=== PATIENT | male | born 1950 | race Caucasian/White ===

== ENCOUNTER 2017-05-13 07:17 | Inpatient (IN) | payer MEDICARE, OTHER ==
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
--- NOTE | ~2017-05-13 | CT2 ---
[facility] RADIOLOGY TEXT RESULTS PATIENT: BYRON VELASQUEZ LOCATION: [facility] 572-01 : [birth year] UNIT #: [id number] AGE: [address]: Ash Gee MD SEX: M ORDER DR: [id number] [facility] [address] [facility]. [place], [place] [address] [id number] I MR#: [id number] Acc #: [id number] NAME: BYRON VELASQUEZ : 1950 SEX: M STUDY DATE/TIME: 05/15/2017 20:52 UNIT: [facility] ROOM: [facility] STUDY DESCRIPTION: CT Abd and Pelv W Cont Attending Physician: Ash Gee M.D. Ordering Physician: Hunter Rebollar M.D. Primary Care Physician: Gilmar Smith M.D. MEDICAL IMAGING REPORT This report is preliminary unless electronic signature is present EXAM CT abdomen and pelvis with contrast. HISTORY Hematuria, onset 05/13/2017. COMPARISON CT abdomen and pelvis, 05/14/2017. TECHNIQUE Axial images performed through the abdomen and pelvis following IV contrast. Arterial and parenchymal phase imaging performed through the kidneys, as well as 5-minute delayed images through the abdomen and pelvis. As the precontrast study had previously been performed on May 14 this was not repeated. This CT exam was performed with one or more of the following radiation dose reduction techniques: automatic exposure control, adjustment of mA and/or kV according to patient size, and iterative reconstruction. FINDINGS ABDOMEN: Lung bases demonstrate right basilar atelectasis and scarring. No effusions. Liver, spleen, gallbladder appear normal. Pancreas and adrenal glands are unremarkable. There is a large, nonobstructing left intrarenal stone measuring up to at 2.3 cm. Multiple bilateral renal cortical cysts which do not appear to enhance postcontrast. No hydronephrosis. Normal contrast excretion and cortical medullary enhancement. Visualized GI tract unremarkable. Small amount of nonspecific generalized perinephric edema. [facility] RADIOLOGY TEXT RESULTS PATIENT: BYRON VELASQUEZ LOCATION: [facility] 572-01 : [birth year] UNIT #: [id number] AGE: [address]: Ash Gee MD SEX: M ORDER DR: PELVIS: The bladder demonstrates a thickened wall with a Ruiz catheter in place. Given the patient's history of hematuria, underlying infiltrative neoplasm not excluded. 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 IMPRESSION 1. Multiple bilateral renal cysts and a large nonobstructing stone lower pole left kidney. No hydronephrosis. There may be a few small nonobstructing stones lower pole right kidney. 2. Diffuse bladder wall thickening with a Ruiz catheter in place. This could reflect underlying cystitis. 3. Reticular nodular changes both lung bases may be infectious or inflammatory in nature. 4. Not mentioned above, there is subtle density in the region of the distal common bile duct, could represent common bile duct stones but there are no findings to suggest underlying obstruction. 5. Not mentioned above, there is a ventral hernia lower abdominal wall. There is also a right lower quadrant ileostomy. Dictated by... Senait Rogers M.D. THIS IS AN ELECTRONICALLY VERIFIED REPORT Senait Rogers M.D. at 05/16/2017 3:11 PM REYNALDO/alfa TD: 05/16/2017 10:57 JOB #: [id number] MEDICAL IMAGING REPORT Page 1 of 1 COPY
--- NOTE | ~2017-05-13 | EKG ---
PATIENT: BYRON VELASQUEZ UNIT #: [id number] Ventricular Rate: 177 BPM Atrial Rate: 174 BPM QRS Duration: 72 ms Q-T Interval: 284 ms QTC Calculation(Bezet): 487 ms Calculated R Ellerbe: 15 degrees Calculated T Ellerbe: 80 degrees Diagnosis Line: Supraventricular tachycardia Diagnosis Line: Nonspecific ST and T wave abnormality Diagnosis Line: Abnormal ECG Diagnosis Line: No previous ECGs available Diagnosis Line: Confirmed by BELINDA FARIAS MD ([id number]) on Diagnosis Line: 05/14/2017 11:08:21 AM INTERPRETING MDHarvinder NÚÑEZ
--- NOTE | ~2017-05-13 | CO ---
Unit #: [id number] #: [id number] Patient: BYRON VELASQUEZ [id number] [address] [place], [place] [address] [id number] I MR#: [id number] NAME: BYRON VELASQUEZ ROOM: 572 Age: 66 Sex: M Admission Date: 05/13/2017 : 1950 Attending Physician: Ash Gee M.D. Primary Care Physician: Gilmar Smith M.D. Consultation Date: 05/15/2017 CONSULTATION REPORT The patient was admitted to Dr. Gee. REASON FOR CONSULTATION Antibiotic management. HISTORY OF PRESENT ILLNESS This is a 66-year-old male who resides at a [place] [facility] and is unable to speak secondary to his past medical history of a stroke. Patient is accompanied by his who is at the bedside and she reports the day prior to admission he began having bleeding from his penis. Patient's reports that he had no fever while he was at the [place] [facility] but does report that he was complaining of some leg pain which is chronic. Patient had a CT scan of the abdomen and the pelvis in the emergency room that showed hemorrhagic cystitis. He was admitted and was also evaluating this patient. Patient was given Rocephin and then changed to Macrobid for urinary tract infection; however, he failed a swallow study and ID was asked to evaluate for further management. Patient is noted also to have some leukocytosis but his blood cultures are currently negative to date. PAST MEDICAL HISTORY 1. Epilepsy. 2. Urinary tract infection. 3. Pneumonia. 4. Essential hypertension. 5. Nontraumatic intracerebral hemorrhage. 6. Hyperlipidemia. 7. Major depressive disorder. 8. Primary insomnia. PAST SURGICAL HISTORY None is noted on the chart. MEDICATIONS Patient is currently on Macrobid. For other medications, please refer to patient's MAR. It is noted that patient is on Keppra. SOCIAL HISTORY Patient lives in a [place] [facility] [place]. He has no history of tobacco, alcohol, or drug use per the H and P. REVIEW OF SYSTEMS Unable to obtain due to patient's current mental status. Unit #: [id number] #: [id number] Patient: BYRON VELASQUEZ PHYSICAL EXAMINATION VITAL SIGNS: Temperature 98.7 with no fever, pulse 98, blood pressure 121/65, and respiratory rate is 18. GENERAL: This is a no apparent distress male whose eyes are open but he is unable to speak. HEENT: His pupils are equal. NECK: His neck is supple. CARDIOVASCULAR: S1, S2. Regular rate and rhythm. PULMONARY: Clear to auscultation bilaterally with no wheezes or rhonchi noted. ABDOMEN: Positive bowel sounds. Soft and nontender. EXTREMITIES: There appears to be lower extremity contractures. There is a Ruiz catheter in place with clear urine. DIAGNOSTIC STUDIES LABORATORY: BUN 18, creatinine 1.3, GFR 56, sodium 139, potassium 4.3, chloride 109, CO2 of 24. Bilirubin 0.6, AST 22, ALT 16. On admission, lactic acid was 1.2 and procalcitonin was 54.3. White blood cell count 27, which is improved from 49 on admission. Hemoglobin 10, hematocrit 31, platelets 317,000. Urinalysis shows full hermosillo WBCs with positive innumerable red blood cells, 3+ bacteria, negative nitrates. MICROBIOLOGY: Blood cultures are currently negative to date and urine culture shows greater than 100,000 colonies of Klebsiella pneumoniae. IMAGING: Chest x-ray is negative. Initial CT scan on admission showed a bladder with internal blood products consistent with hemorrhagic cystitis with fat stranding concerning for infectious versus inflammatory etiology. Staghorn calculus in the left kidney. Mass-like density in the left breast. Repeat CT scan yesterday shows resolution of organized blood clot, possible cystitis. No adjacent fluid collection. Bilateral renal stones. Probable left gynecomastia. Repeat CT scan with contrast is currently pending this a.m. IMPRESSION This is a 66-year-old male with history of cerebrovascular accident and epilepsy on antiseizure medications with the last seizure documented in October 2016 per the . Patient now has one-day history of hemorrhagic cystitis and urinary tract infection secondary to extended spectrum beta lactamases Klebsiella. At this time with patient's elderly age, borderline creatinine, and history of epilepsy would recommend to avoid aminoglycosides and carbapenems. Patient also failed his swallow study and would like to avoid oral antibiotic therapy. Will recommend at this time to change all antibiotic therapy to Zerbaxa 1.5 g IV q.8 hours. Will check a CBC, BMP in the a.m. and follow up with a CT scan of the abdomen and pelvis which is being done today. Urology is also planning to do a cystoscopy once infection has cleared. The patient also has left breast mass/gynecomastia and further workup is being done per the surgery team. Thank you for allowing us to participate in the care of this patient. Further recommendations to follow pending patient's clinical course. It was noted that patient had a significant elevated white blood cell count on admission. This could be multifactorial related to patient's hematuria as well as his infection but has been trending down and will continue to Unit #: [id number] #: [id number] Patient: BYRON VELASQUEZ follow. Dictated by... Vikki VargasPBryantRBryantN. for Candelario Puentes M.D. ELVIS/estela TD: 05/15/2017 09:24 JOB #: [id number] CONSULTATION REPORT Page 1 of 1 X X CONSULTATION REPORT
--- NOTE | ~2017-05-13 | DS ---
Unit #: [id number] #: [id number] Patient: BYRON VELASQUEZ [id number] [address] [place], [place] [address] [id number] I MR#: [id number] NAME: BYRON VELASQUEZ ROOM: 572 Age: 66 Sex: M Admission Date: 05/13/2017 : 1950 Discharge Date: 05/19/2017 Attending Physician: Ash Gee M.D. Primary Care Physician: Gilmar Smith M.D. DISCHARGE SUMMARY REASON FOR ADMISSION Bleeding from penis. HISTORY OF PRESENT ILLNESS/HOSPITAL COURSE The patient is a 66-year-old male, long-term resident of [facility], with a prior history of epilepsy, nontraumatic intracerebral hemorrhage, hyperlipidemia, major depressive disorder, dementia brought on by aforementioned CVA who presented secondary to gross hematuria. He, himself, unfortunately is a very poor historian. The initial review of systems as well as history was elicited after discussion with the patient's . While being evaluated in the emergency room for hematuria, it was noted that he did have questionable SVT as well as rhythm changes while being evaluated. In regard to gross hematuria, consultation was placed to urology services who continued to follow the patient through the hospital course. The patient underwent a CT abdomen and pelvis on two different occasions which did raise the possibility of bladder wall thickening as well as a questionable mass within the bladder itself; however, repeat CT imaging showed similar mass which will be followed as an outpatient. Urology services felt as though it may be secondary to underlying infection and recommended clearing of aforementioned infection prior to any sort of intervention. Through the CT abdomen and pelvis, it was also noted patient did have gallstones and questionable acute cholecystitis. This prompted us to perform an ultrasound of the gallbladder which did return back normal. There was a question if there was a common bile duct stone. This prompted a GI consultation with Dr. Khalil who felt as though there was no stone which was evident. From a GI and LSA standpoint, they signed off. Ultimately his blood cultures, 1/2 did grow ESBL. Repeat blood cultures were negative. Patient was maintained on IV antibiotics per ID services. At this point in time, we are awaiting ID input into antibiotic type duration and course. The patient clinically is now stable for transfer back to [facility] for ongoing care. Overall and unfortunately, his long-term prognosis is guarded at best. FINAL DISCHARGE DIAGNOSES 1. Gross hematuria, now resolving. Unit #: [id number] #: [id number] Patient: BYRON VELASQUEZ 2. Extended spectrum beta lactamases urinary tract infection. 3. Extended spectrum beta lactamases bacteremia. 4. Dysphagia. 5. Prior history of intracerebral hemorrhage. 6. Breast mass, coincidental finding left side. 7. Possible aspiration pneumonia seen on initial CT; however, clinically no overt signs and symptoms. 8. Anemia with baseline hemoglobin between 8-9. 9. Questionable bladder mass. DISCHARGE INSTRUCTIONS 1. Patient is to leave his Ruiz x7 days. At the conclusion of seven days, Ruiz is to be removed for a voiding trial. Outpatient followup with Dr. Benavides of urology services is recommended. 2. Patient should have an outpatient mammogram and left breast ultrasound in regard to coincidental finding of left breast mass seen on CT abdomen and pelvis. 3. Patient should have a repeat BMP and CBC in approximately seven days. FINAL DISCHARGE MEDICATIONS 1. Tylenol 500 mg p.o. t.i.d. p.r.n. 2. Neurontin 200 mg p.o. q.8. 3. Keppra 500 mg p.o. b.i.d. 4. Cymbalta 60 mg p.o. daily. 5. Remeron 7.5 mg p.o. nightly. 6. Meclizine 25 mg p.o. t.i.d. 7. Zofran 4 mg p.o. t.i.d. p.r.n. 8. Ativan 0.5 mg p.o. nightly. 9. Lopressor 25 mg p.o. b.i.d. 10. Lipitor 40 mg p.o. nightly. 11. Catapres 0.2 mg p.o. t.i.d. 12. Reglan 5 mg p.o. t.i.d. 13. Proscar 5 mg p.o. daily. 14. Aspirin 81 mg p.o. daily. 15. Nexium 40 mg p.o. daily. 16. Zanaflex 2 mg p.o. t.i.d. 17. Antibiotics to be determined by ID services prior to discharge. DISCHARGE CONDITION Stable. DISCHARGE DISPOSITION [facility] for ongoing care. Dictated by... Bing Zuñiga/estela TD: 05/19/2017 09:44 JOB #: [id number] Unit #: [id number] #: [id number] Patient: BYRON VELASQUEZ DISCHARGE SUMMARY Page 1 of 1 X Ash Gee MD X DISCHARGE SUMMARY
--- NOTE | ~2017-05-13 | CR2 ---
[facility] A Service of [facility] RADIOLOGY TEXT RESULTS PATIENT: BYRON VELASQUEZ LOCATION: [facility] : [birth year] UNIT #: [id number] AGE: [address]: Ash Gee MD SEX: M ORDER DR: [id number] [facility]. [place], [place] [address] [id number] I MR#: [id number] Acc #: [id number] NAME: BYRON VELASQUEZ : 1950 SEX: M STUDY DATE/TIME: 05/13/2017 19:36 UNIT: [facility] ROOM: [facility] STUDY DESCRIPTION: CR Abdomen Acute Series Attending Physician: Carolyn Koch M.D. Ordering Physician: Billy Méndez M.D. Primary Care Physician: Gilmar Smith M.D. MEDICAL IMAGING REPORT This report is preliminary unless electronic signature is present EXAM Acute abdomen series. HISTORY Hemorrhagic cystitis today. Abdomen pain today. FINDINGS Flat and upright views of the abdomen and upright view of the chest demonstrate mild distension of the ascending and transverse colon suggesting mild localized ileus. Remainder of the bowel caliber is normal. 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 No free air. Left renal stone measures 2 cm. Upright view of the chest demonstrates the cardiac size and pulmonary vascularity are normal. No infiltrates or effusions. Old or healing fractures lateral left lower ribs. IMPRESSION 1. Mild gaseous distension of the right colon suggesting mild ileus. No small bowel dilatation. 2. 2 cm left renal stone. 3. No active disease in the chest. Dictated by... Epifanio Durham M.D. THIS IS AN ELECTRONICALLY VERIFIED REPORT Epifanio Durham M.D. at 05/14/2017 1:10 PM TIGRE/abilio TD: 05/14/2017 00:00 JOB #: [id number] [facility] A Service of [facility] RADIOLOGY TEXT RESULTS PATIENT: BYRON VELASQUEZ [facility] [id number] : [birth year] UNIT #: [id number] AGE: [address]: Ash Gee MD SEX: M ORDER DR: MEDICAL IMAGING REPORT Page 1 of 1 COPY
--- NOTE | ~2017-05-13 | EKG ---
PATIENT: BYRON VELASQUEZ UNIT #: [id number] Ventricular Rate: 123 BPM Atrial Rate: 123 BPM P-R Interval: 146 ms QRS Duration: 80 ms Q-T Interval: 326 ms QTC Calculation(Bezet): 466 ms P Ennice: 67 degrees Calculated R Ennice: 29 degrees Calculated T Ennice: 60 degrees Diagnosis Line: Sinus tachycardia Diagnosis Line: Otherwise normal ECG Diagnosis Line: When compared with ECG of 13-MAY-2017 16:02, Diagnosis Line: (unconfirmed) Diagnosis Line: ST no longer depressed in Lateral leads Diagnosis Line: Confirmed by BELINDA FARIAS MD ([id number]) on Diagnosis Line: 05/14/2017 11:08:46 AM INTERPRETING MD: WILTON
--- NOTE | ~2017-05-13 | CO ---
Unit #: [id number] #: [id number] Patient: BYRON HERRERA [id number] [address] [place], [place] [address] [id number] MR#: [id number] NAME: BYRON HERRERA ROOM: 572 Age: 66 Sex: M Admission Date: 05/13/2017 : 1950 Attending Physician: Ash Gee M.D. Primary Care Physician: Gilmar Smith M.D. Consultation Date: 05/14/2017 CONSULTATION REPORT HISTORY OF PRESENT ILLNESS Mr. Herrera is a 66-year-old gentleman, who is a resident at [facility], who was sent into the emergency room because of hematuria. While being evaluated by Urology, a CT scan of the abdomen and pelvis was obtained and they describes some nonspecific calcium densities in the right upper quadrant. He cannot be certain whether these are in the vascular system or in the biliary system. We were asked to see the patient to rule out acute cholecystitis. The patient has had extensive previous abdominal surgery and has a stoma in the right upper quadrant from a previous colon perforation and subtotal colectomy. The patient's states he has not had any nausea, vomiting, fever, chills, or feeding intolerance to her knowledge. The patient denies any significant abdominal pain. PAST MEDICAL HISTORY Epilepsy, chronic recurrent urinary tract infections, pneumonia, hypertension, nontraumatic intracerebral hemorrhage, hyperlipidemia, major depression, insomnia. He has had a previous subtotal colectomy. Again, the believes for a perforated colon, he had a very difficult postoperative course and has refused to have any further surgery according to the . HOME MEDICATIONS Include Cymbalta, Protonix, hydrocodone, Keppra, meclizine, metoprolol, mirtazapine, ondansetron, and tizanidine. ALLERGIES No known drug allergies. FAMILY HISTORY The patient and deny any chronic or inheritable diseases. SOCIAL HISTORY Nonsmoker, nondrinker. He is on disability and is a senior living resident. REVIEW OF SYSTEMS He was not having any nausea, vomiting, fever, chills, night sweats, hematemesis, hematochezia, or melena. He denies any abdominal pain. PHYSICAL EXAMINATION VITAL SIGNS: Temperature is 98.1 and throughout his hospital course, he has had no fever. Pulse is 91 and regular, respirations 18, blood pressure 136/83. GENERAL: He is awake and alert and cooperative, but does not offer much Unit #: [id number] #: [id number] Patient: BYRON HERRERA. Usually answers yes or no. HEENT: Unremarkable. CARDIAC: Regular rhythm. LUNGS: Clear. ABDOMEN: Soft. He has a functioning stoma in the right upper quadrant. He does not exhibit any involuntary guarding, any complaints of pain to palpation. There is no palpable mass and no rebound tenderness. EXTREMITIES: Trace edema. NEUROLOGICALLY: Moves all four extremities. No gross cranial nerve deficits. DIAGNOSTIC STUDIES LABORATORY RESULTS: Blood gas; pH of 7.43, pCO2 of 39, PO2 of 102 on 2 L nasal cannula oxygen. Comprehensive metabolic panel is essentially within normal limits. Lactic acid 1.2, procalcitonin is 54.3. INR is 1.0. White count is 27,100. On admission it was 49,300. Urinalysis shows 10 to 25 red cells, 200 to 300 white cells. Culture is pending. Blood cultures were negative. Urine culture grows at a gram-negative rods greater than 10 to the 6th. IMAGING STUDIES: CT scan has multiple findings. The first findings, we were asked to evaluate the calcium densities in the right upper quadrant. They are nonspecific and an ultrasound has been ordered. There was fat stranding and blood within the urinary bladder. Staghorn calculus in the left kidney, mass like subareolar lesion, probable gynecomastia, chronic fracture of the right femoral neck, diverting colostomy, coronary artery calcification, small hiatal hernia. ASSESSMENT AND PLAN The patient has no clinical evidence of acute cholecystitis; however, there are calcium densities in the right upper quadrant. An ultrasound has been ordered to better define these calcium densities. He also has a subareolar mass on the left. On CT scan, it is consistent with gynecomastia. An ultrasound will be obtained, and if necessary a fine-needle aspirate. Dictated by... Bing Mchugh/kaity TD: 05/14/2017 16:38 JOB #: [id number] CONSULTATION REPORT Page 1 of 1 X Frantz Leonard MD CONSULTATION REPORT
--- NOTE | ~2017-05-13 | DS ---
Unit #: [id number] #: [id number] Patient: BYRON VELASQUEZ [id number] [address] [place], [place] [address] [id number] I MR#: [id number] NAME: BYRON VELASQUEZ ROOM: 57 Age: 66 Sex: M Admission Date: 05/13/2017 : 1950 Discharge Date: Attending Physician: Ash Gee M.D. Primary Care Physician: Gilmar Smith M.D. DISCHARGE SUMMARY ADDENDUM The patient was discharged the prior day, but this discharged was held secondary to some question of changes in the patient's mental status. The patient refused any further workup, including a CT of his head, however. The patient was seen by neurology, who recommended simply supportive care. At this time, discussion with the patient and his reveals that he has returned to baseline. Entirely possible this was a side effect of his urinary tract infection. The patient is being discharged at this time with no changes to his discharge medications "as above." Dictated by... Serjio Diaz M.D. JOSSIE/berto TD: 05/20/2017 16:08 JOB #: [id number] DISCHARGE SUMMARY Page 1 of 1 X Serjio Diaz MD X DISCHARGE SUMMARY
--- NOTE | ~2017-05-13 | CO ---
Unit #: [id number] #: [id number] Patient: BYRON VELASQUEZ [id number] [address] [place], [place] [address] [id number] I MR#: [id number] NAME: BYRON VELASUQEZ ROOM: 572 Age: 66 Sex: M Admission Date: 05/13/2017 : 1950 Attending Physician: Ash Gee M.D. Primary Care Physician: Gilmar Smith M.D. CONSULTATION REPORT REASON FOR CONSULTATION Critical care management. CHIEF COMPLAINT/HISTORY OF PRESENT ILLNESS This patient is a 66-year-old male presented to the emergency room with the complaint of blood in the urine for unknown amount of time and the patient was found, by alf staff, with blood in his brief and no recent report of trauma, and he has a past medical history of hypertension, epilepsy, urinary tract infection, and brought in and was found to be having sepsis and a Ruiz catheter placed. He is on continuous bladder irrigation. I am seeing him at the bedside, he just nods yes or no to the question, denies any pain. REVIEW OF SYSTEMS Unobtainable because of the patient's poor cognition. PAST MEDICAL HISTORY 1. Hypertension. 2. Epilepsy. 3. Urinary tract infection. 4. Anxiety. 5. Dyslipidemia. 6. Hypertension. MEDICATIONS Include: 1. Tylenol 2. Aspirin 3. Ativan 4. Lipitor 5. Catapres 6. Omeprazole 7. Hydrocodone 8. Keppra 9. Meclizine 10. Mirtazapine 11. Zofran 12. Mirtazapine 13. Metoprolol 14. Reglan 15. Cymbalta PHYSICAL EXAMINATION VITAL SIGNS: Currently his temperature is 98, pulse 93, respiration 21, Unit #: [id number] #: [id number] Patient: BYRON VELASQUEZ and blood pressure 149/100. Oxygen saturation 100% on two liters. NEUROLOGIC: Awake, alert at baseline, seems to be. CVS: S1 plus S2. RESPIRATORY: Bilateral air entry, bilateral mild rhonchi. GI: Nontender, soft, bowel sounds positive. EXTREMITIES: No edema. DIAGNOSTIC STUDIES LABORATORY: BUN 18, creatinine 1.3, sodium 139, potassium is 4.3, white count is 27, hemoglobin 10, hematocrit is 31, platelet count 317. IMAGING: CT of the abdomen and pelvis was done which showed fat stranding adjacent to the fluid and distended urinary bladder, also contains internal gas and large amount of internal blood products likely accounting for the patient's hematuria finding but seemed to reflect hemorrhage, cystitis, or possible hemorrhage secondary to the trauma, although fat stranding would seem to favor infection over inflammatory etiology, clinical correlation recommended, questionable focus of gas in the proximal left ureter of uncertain etiology, possibly transmitted from the bladder, ascending pyelitis cannot be excluded, staghorn calculus in the left kidney, no evidence of ureteral calculus regarding finding in the urinary bladder, follow up with ultrasound recommended, mass-like density in the subareolar left breast measuring 3.5 cm possible reflecting gynecomastia, correlation recommended, chronic fracture of the right femoral neck with subluxation of the distal femur at the intertrochanteric region relative to the femoral head, the femoral head remains seated within the acetabulum and high riding testicles within the inguinal canal and nonspecific nodular densities in the subcutaneous midline fat just to the left of the midline, total colectomy and diverting colostomy. Coronary calcification. ASSESSMENT/PLAN 1. Hematuria. 2. Sepsis. 3. Likely urinary tract infection. 4. History of possible hemorrhagic cystitis. 5. History of hypertension, epilepsy, anxiety, and depression. 6. History of stroke, seizures, and status post colostomy, chronic right lower extremity hip fracture and left breast lesion. Plan is to admit the patient to intensive care unit and continue IV fluids, IV antibiotics, and bronchodilator, GI/DVT prophylaxis, get a blood gas and chest x-ray as well. The patient will be closely monitored, urology consultation is pending, we will continue to monitor, please see orders for detailed plan. Thank you very much for this consultation. Dictated by... Bing Lora TD: 05/14/2017 14:29 JOB #: [id number] Unit #: [id number] #: [id number] Patient: BYRON VELASQUEZ CONSULTATION REPORT Page 1 of 1 X Edison Archibald MD X CONSULTATION REPORT
--- NOTE | ~2017-05-13 | CT4 ---
[facility] A Service of [facility] RADIOLOGY TEXT RESULTS PATIENT: BYRON VELASQUEZ LOCATION: [facility] 572-01 : [birth year] UNIT #: [id number] AGE: [address]: Ash Gee MD SEX: M ORDER DR: [id number] [facility] [address] [facility]. [place], [place] [address] [id number] I MR#: [id number] Acc #: [id number] NAME: BYRON VELASQUEZ : 1950 SEX: M STUDY DATE/TIME: 05/14/2017 13:16 UNIT: [facility] ROOM: 2 STUDY DESCRIPTION: CT Abd and Pelv Wo Cont Attending Physician: Ash Gee M.D. Ordering Physician: Billy Méndez M.D. Primary Care Physician: Gilmar Smith M.D. MEDICAL IMAGING REPORT This report is preliminary unless electronic signature is present EXAM CT abdomen and pelvis without contrast HISTORY Hematuria. Symptoms for 2 days. Bladder hematoma suspected on CT yesterday. FINDINGS CT abdomen and pelvis was performed without contrast and is compared to CT yesterday. This CT exam was performed with one or more of the following radiation dose reduction techniques: Automatic exposure control, adjustment of mA and/or kV according to patient size, and iterative reconstruction. CT ABDOMEN: Mild nodular interstitial prominence in the lung bases in the bilateral lower lobes. These are nonspecific. Soft tissue prominence inferior to the left nipple measuring close to 3 cm, could be secondary to gynecomastia and correlation to physical exam findings is recommended. Calcifications along the common bile duct, most likely adjacent to the bile duct, could be small, calcified nodes. Intraductal calculi are considered less likely. No biliary dilatation. Borderline gallbladder distension. 2.5-cm stone in the lower-pole left kidney. Two small stones in the mid right kidney measuring approximately 3 mm. The liver, spleen, pancreas, and adrenal glands are normal. No bowel dilatation. No ascites. Normal caliber abdominal aorta. Right lower quadrant colostomy. Stable bilateral renal cysts. CT PELVIS: Urinary bladder is decompressed. Probable bladder wall thickening could be secondary to cystitis or bladder wall hypertrophy. Ruiz catheter in the bladder. The large intraluminal lobulated filling defect in the urinary bladder noted on CT yesterday is no longer present, suggesting interval resolution of a blood clot within the bladder. No free fluid. No inflammatory stranding. Chronic ununited subcapital STS. [facility] A Service of [facility] RADIOLOGY TEXT RESULTS PATIENT: BYRON VELASQUEZ LOCATION: [facility] 572-01 : [birth year] UNIT #: [id number] AGE: [address]: Ash Gee MD SEX: M ORDER DR: fracture right femoral neck. IMPRESSION 1. Since yesterday, there has been interval resolution of the large intraluminal intermediate-density filling defect in the urinary bladder suggesting resolution of an organized blood clot. The bladder is now decompressed and there is a Ruiz catheter in the bladder. There may be at least mild bladder wall thickening, difficult to evaluate given the bladder decompression, but this could be due to cystitis. No adjacent fluid collection. No free air. 2. Remainder of the exam is stable. 3. Bilateral renal stones measuring up to 2.5 cm in the lower-pole left kidney. 4. Probable left gynecomastia. Correlate to physical exam findings. 5. Calcifications along the common bile duct could be calcified gallstones. Intraductal filling defects are considered less likely in the absence of biliary dilatation. 6. Mild nodular interstitial pulmonary infiltrates in both lung bases could be infectious or inflammatory. 7. 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 Dictated by... Epifanio Durham M.D. THIS IS AN ELECTRONICALLY VERIFIED REPORT Epifanio Durham M.D. at 05/14/2017 10:14 PM DFL/kayy TD: 05/14/2017 21:38 JOB #: [id number] MEDICAL IMAGING REPORT Page 1 of 1 COPY
--- NOTE | ~2017-05-13 | MR18 ---
[facility] A Service of [facility] & [facility] RADIOLOGY TEXT RESULTS PATIENT: BYRON VELASQUEZ LOCATION: [facility] 572-01 : [birth year] UNIT #: [id number] AGE: [address]: Ash Gee MD SEX: M ORDER DR: [id number] [facility] [address] [facility]. [place], [place] [address] [id number] I MR#: [id number] Acc #: [id number] NAME: BYRON VELASQUEZ : 1950 SEX: M STUDY DATE/TIME: 05/19/2017 15:55 UNIT: [facility] ROOM: [facility] STUDY DESCRIPTION: MR Brain Wo Contrast Attending Physician: Ash Gee M.D. Ordering Physician: Markos Lund M.D. Primary Care Physician: Gilmar Smith M.D. MRI CENTER REPORT This report is preliminary unless electronic signature is present. EXAM MRI of the brain without contrast 05/19/2017 COMPARISON STUDIES None. HISTORY Seizures. Dementia. Recent right-sided facial droop. Patient poor historian and cannot cooperate. History of prior intracerebral hemorrhage. TECHNIQUE Multisequence, multiplanar imaging of the brain was obtained without contrast. FINDINGS Significant motion artifact is noted in multiple sequences, limiting evaluation. It is non-diagnostic to evaluate for subtle lesions. Grossly, no obvious large stroke, hydrocephalus, midline shift. Multiple patchy hyperintense T2 signal lesions are noted in the brain involving the subcortical white matter, periventricular white matter, bilateral thalami, and to a lesser degree, bilateral basal ganglia. It is almost prominently noted in the left middle cerebellar peduncle and left cerebellar hemisphere with asymmetrical atrophy of these structures when compared to the right side. There is prominence of the ventricles, which could be related to atrophy or developing normal pressure hydrocephalus. Hypointense gradient signal is noted in the region of the anterior left cerebellar hemisphere at the site of previous insult and encephalomalacia change. It is close to the left cerebellar peduncle and could represent calcification or hemosiderin deposition from old insult. IMPRESSION 1. Significantly limited study due to motion artifact. [facility] A Service of [facility] & [facility] RADIOLOGY TEXT RESULTS PATIENT: BYRON VELASQUEZ LOCATION: [facility] 572-01 : [birth year] UNIT #: [id number] AGE: [address]: Ash Gee MD SEX: M ORDER DR: 2. In the visualized sequences, when allowing for motion, no obvious large acute lesion, like acute stroke or space occupying mass, could be identified. 3. Multiple hyperintense T2 signal lesions are noted throughout the brain, including the left middle cerebellar peduncle and a large portion of it is in the cerebellar hemisphere relating to old insults. Patient has a history of previous hemorrhage and it correlates with some hyperintense gradient signal at left cerebellar hemisphere. Dictated by... Tristen Saldana M.D. THIS IS AN ELECTRONICALLY VERIFIED REPORT Tristen Saldana M.D. at 05/23/2017 9:00 PM CPR/pcl TD: 05/20/2017 00:26 JOB #: [id number] MRI CENTER REPORT Page 1 of 1 COPY
--- NOTE | ~2017-05-13 | CO ---
Unit #: [id number] #: [id number] Patient: BYRON VELASQUEZ [id number] [address] [address] [id number] I MR#: [id number] NAME: BYRON VELASQUEZ ROOM: 572 Age: 66 Sex: M Admission Date: 05/13/2017 : 1950 Attending Physician: Ash Gee M.D. Primary Care Physician: Gilmar Smith M.D. Consultation Date: 05/16/2017 CONSULTATION REPORT DICTATED FOR Chester Khalil M.D. PRIMARY CARE PHYSICIAN Gilmar Smith M.D. REASON FOR CONSULTATION Possible common bile duct stone. HISTORY OF PRESENT ILLNESS The patient is a 66-year-old male, who is a resident at [facility]. The patient has past medical history of epilepsy, nontraumatic intracerebral hemorrhage, major depression, and immobility syndrome. The patient was admitted with hematuria and was found to have hemorrhagic cystitis and UTI. Incidentally, abdominal CT show calcifications along the common bile duct concerning for possible common bile duct stone. Abdominal CT showed normal common bile duct caliber and linear echogenic shadowing focus seen within the common bile duct. History is unobtainable from the patient secondary to history of CVA and cognitive impairment. According to the patient's , who is at bedside, the patient has no history of fever, jaundice, abdominal pain, nausea, vomiting, or recent weight loss. PAST MEDICAL HISTORY Epilepsy, chronic recurrent urinary tract infection, pneumonia, hypertension, nontraumatic intracerebral hemorrhage, hyperlipidemia, major depression, insomnia. PAST SURGICAL HISTORY Subtotal colectomy secondary to perforated colon and colostomy. HOME MEDICATIONS Cymbalta, Protonix, hydrocodone, Keppra, meclizine, metoprolol, mirtazapine, Zofran, and tizanidine. ALLERGIES No known drug allergies. FAMILY HISTORY No family history of colon or pancreatic cancer, or liver disease. SOCIAL HISTORY The patient is a resident at [facility]. He is pretty much Unit #: [id number] #: [id number] Patient: BYRON VELASQUEZ confined to a wheelchair. No history of alcohol or tobacco use. REVIEW OF SYSTEMS Detailed review of system is unobtainable secondary to patient's cognitive impairment. PHYSICAL EXAMINATION VITAL SIGNS: Stable with temperature 99.5, blood pressure 172/95, heart rate 88, and respirations 20. GENERAL: The patient is resting, does not really respond to questions, but appears comfortable in no acute distress. HEENT: There is no scleral icterus. No lymphadenopathy. No peripheral edema. LUNGS: Clear to auscultation bilaterally. CARDIOVASCULAR: Regular rate and rhythm. ABDOMEN: Soft, nontender. Positive bowel sounds. Liver and spleen not palpable. Colostomy noted, right abdomen. DIAGNOSTIC STUDIES LABORATORY RESULTS: Complete metabolic panel notable for albumin 2.7, normal total bilirubin of 0.4, AST 17, ALT 14, alkaline phosphatase 81. CBC notable for WBC 14.3, hemoglobin 10.7, and platelets 390. Urine culture positive for Klebsiella. IMAGING STUDIES: CT of abdomen showed calcifications along the common bile duct without biliary dilation. Abdominal ultrasound showed echogenic shadowing foci within common bile duct, normal intrahepatic and extrahepatic biliary ductal dilation, small gallstones are present in gallbladder without abnormal gallbladder wall thickening. CLINICAL IMPRESSION AND PLAN The patient with abnormal CT findings concerning for possible common bile duct stone. The patient has been asymptomatic without any biliary symptoms, also noteworthy liver function studies have been within normal limits unlikely common bile duct stone, certainly no common bile duct obstruction. DICTATION ENDS HERE. Dictated by... HOA Willis/kaity TD: 05/17/2017 06:48 JOB #: [id number] CONSULTATION REPORT Page 1 of 1 X X CONSULTATION REPORT
--- NOTE | ~2017-05-13 | CR63 ---
[facility] A Service of [facility] & [facility] RADIOLOGY TEXT RESULTS PATIENT: BYRON VELASQUEZ LOCATION: [facility] 572-01 : [birth year] UNIT #: [id number] AGE: [address]: Ash Gee MD SEX: M ORDER DR: [id number] [facility] [address] [facility]. [place], [place] [address] [id number] I MR#: [id number] Acc #: [id number] NAME: BYRON VELASQUEZ : 1950 SEX: M STUDY DATE/TIME: 05/15/2017 9:11 UNIT: [facility] ROOM: [facility] STUDY DESCRIPTION: CR Chest 2 View Attending Physician: Ash Gee M.D. Ordering Physician: Edison Archibald M.D. Primary Care Physician: Gilmar Smith M.D. MEDICAL IMAGING REPORT This report is preliminary unless electronic signature is present EXAM Chest PA and lateral, 05/15/2017. HISTORY Shortness of breath since 05/13/2017, respiratory failure, benign essential hypertension. FINDINGS The cardiac and mediastinal structures are stable, compared with 05/14/2017. There is poor inspiratory result with bibasilar discoid atelectasis. The lungs are otherwise clear. There are no pleural effusions. IMPRESSION No active pulmonary disease. Dictated by... Travon Hatfield M.D. THIS IS AN ELECTRONICALLY VERIFIED REPORT Travon Hatfield M.D. at 05/16/2017 8:13 AM PATRICIA/kathy TD: 05/15/2017 18:10 JOB #: [id number] MEDICAL IMAGING REPORT Page 1 of 1 COPY
--- NOTE | ~2017-05-13 | CT4 ---
[facility] A Service of [facility] RADIOLOGY TEXT RESULTS PATIENT: BYRON VELASQUEZ LOCATION: [facility] 572-01 : 49 UNIT #: [id number] AGE: [address]: Ash Gee MD SEX: M ORDER DR: [id number] [facility] [address] [facility]. [place], [place] [address] [id number] E MR#: [id number] #: [id number] NAME: BYRON VELASQUEZ : 1950 SEX: M STUDY DATE/TIME: 05/13/2017 9:16 UNIT: RICHELLE ROOM: STUDY DESCRIPTION: CT Abd and Pelv Wo Cont Attending Physician: Tony Almazan M.D. Ordering Physician: Tony Almazan M.D. Primary Care Physician: Gilmar Smith M.D. MEDICAL IMAGING REPORT This report is preliminary unless electronic signature is present EXAM CT abdomen and pelvis without IV contrast COMPARISON None. INDICATIONS 66-year-old male with gross hematuria since this morning. TECHNIQUE Axial CT imaging abdomen and pelvis was performed by IV contrast. Lack of IV contrast limits evaluation of adenopathy, vasculature and viscera. Coronal and sagittal reformats constructed. This CT exam was performed with one or more of the following radiation dose reduction techniques: automatic exposure control, adjustment of mA and/or kV according to patient size, and iterative reconstruction. FINDINGS There is chronic-appearing fracture with pseudoarthrosis at the junction of the femoral head and neck. There is heterotopic bone formation at the right hip. The right femoral head is anatomically aligned with the acetabulum. Multilevel degenerative facet disease of the [id number]-eg-[id number] lumbar spine is moderate. Evaluation of the spine is limited by nonstandard positioning. The intertrochanteric region of the right femur is subluxed superior to the remaining femoral head. Degenerative changes of both sacroiliac joints, right greater than left. No evidence of acute fracture. No suspicious osseous lesions. Subareolar asymmetry in the left breast measuring approximately 3.5 cm x 1.7 cm, incompletely imaged. This may represent gynecomastia. Correlation with physical exam is recommended. Testicles are high-riding, seen in the inguinal canals. Ruiz catheter is in place with the balloon anchored in the bladder lumen. [facility] A Service of [facility] RADIOLOGY TEXT RESULTS PATIENT: BYRON VELASQUEZ LOCATION: [facility] 572-01 : 49 UNIT #: [id number] AGE: [address]: Ash Gee MD SEX: M ORDER DR: There is intraluminal gas within the bladder and there is hyperdense material also within the bladder consistent with blood products. This could be due to hemorrhagic cystitis or possibly a Ruiz catheter trauma. A hemorrhagic neoplasm cannot be excluded. The posterolateral wall of the right urinary bladder appears somewhat asymmetrically dense and thickened but this may be simply due to dependent positioning of this portion of the bladder. Prostate gland is unremarkable. There are minimal bilateral pelvic phleboliths. Inspissated stool ball is seen within the rectum measuring up to 4.9 cm. No evidence of mechanical bowel obstruction. The patient is post diverting colostomy with near total resection of the colon. The sigmoid colon is blind-ending superiorly. No evidence of a small bowel obstruction. No evidence of stomal hernia. Tiny subcutaneous nodular density along the midline anterior abdominal wall, just to the left near the umbilicus, may reflect an injection granuloma, of uncertain stability. Tree-in-bud nodular opacities are seen in both lung bases consistent with bronchiolitis, possibly reflecting ongoing micro-aspiration. There are calcified granulomas in the right lung. Largest nodule measures 6 mm in the left lower lobe. There are coronary artery calcifications. Gallbladder appears fluid distended and mildly indistinct and there is question of a small amount of adjacent free fluid. There is hyperdensity at the level of the gallbladder neck, possibly extending into the cystic duct. Given these findings, this is concerning for an acute cholecystitis. There is no evidence of common bile duct dilatation. Spleen is unremarkable. Pancreas is within normal limits. There is a staghorn-type calculus in the left kidney and there are cysts versus angiomyolipomas of the left kidney. No evidence of associated hemorrhage. It appears there is a small amount of gas within the proximal left ureter which may be transmitted from the bladder, ascending pyelitis cannot entirely be excluded. This is seen on axial imaging and does not appear to persist on the sagittal or coronal reformats and may be artifactual. Large cyst seen in the parapelvic right kidney measuring up to 4.9 cm. No hydronephrosis or hydroureter. No ureteral calculi. No free fluid or pneumoperitoneum. Small hiatal hernia. Abdominal aorta is normal in caliber with calcifications seen at the proximal superior mesenteric and bilateral proximal renal arteries. Calcifications extend into the iliac arteries and femoral arteries bilaterally. There is fat stranding adjacent to the dome of the urinary bladder. No evidence of adenopathy on this noncontrast exam. IMPRESSION 1. There is fat stranding adjacent to the fluid-distended urinary bladder, which also contains internal gas and a large amount of internal blood products likely accounting for the patient's hematuria. Finding would seem to reflect hemorrhagic cystitis or possibly hemorrhage secondary to trauma, although the fat stranding would seem to favor an infectious or inflammatory etiology. Clinical correlation recommended. There is questionable focus of gas in the proximal left ureter of uncertain etiology, possibly transmitted from the bladder. Ascending pyelitis cannot be excluded. Regarding the [facility]. [facility] A Service of [facility] RADIOLOGY TEXT RESULTS PATIENT: BYRON VELASQUEZ LOCATION: [place] [address] : 49 UNIT #: [id number] AGE: [address]: Ash Gee MD SEX: M ORDER DR: finding in the urinary bladder, follow-up ultrasound is recommended to exclude the possibility of bladder neoplasm. 2. Staghorn calculus in the left kidney. No evidence of ureteral calculus. 3. Mass-like density in the subareolar left breast measuring up to 3.5 cm, possibly reflecting gynecomastia. Correlation with clinical exam is recommended. If indicated, diagnostic mammography and possible ultrasound could be performed to evaluate this as an outpatient. 4. Chronic nonunited fracture of the right femoral neck with subluxation of the distal femur at the intertrochanteric region relative to the femoral head. The femoral head remains seated with the acetabulum. Correlation with history of trauma is recommended. This is chronic in nature with pseudoarthrosis. 5. High-riding testicles within the inguinal canals, possibly transient. 6. Nonspecific nodular densities in the subcutaneous midline fat, just to the left of the midline near the umbilicus. This may potentially reflect an injection granuloma. Clinical correlation recommended. 7. Patient is post near total colectomy with diverting colostomy. There is no evidence of complication. 8. There are tree-in-bud nodular opacities throughout the lung bases suggesting bronchiolitis, possibly due to micro-aspiration. The largest nodule in the left lung base measures up to 6 mm. If the patient does have a history of malignancy, consider CT chest followup in 6-12 months to document stability or resolution. Alternately, if the patient does have risk factors for primary pulmonary malignancy, noncontrast CT would be considered in 6 months or in the absence of risk factors, a noncontrast CT would be recommended in 12 months. 8. Coronary artery calcifications. 9. Evaluation of the upper abdomen is limited by motion. The gallbladder appears mildly indistinct and there are calcium densities in the region of possibly the cystic duct or possibly within the proper hepatic artery. An acute cholecystitis cannot be excluded given motion and this could possibly be secondary to obstructing calculi within the cystic duct but again, the calcifications could be within the hepatic artery and findings could all be artifactual at the gallbladder due to motion. Clinical correlation is recommended. One could consider right upper quadrant abdominal ultrasound to exclude the possibility of acute cholecystitis. 10. Small hiatal hernia. 11. Benign cysts versus angiomyolipomas of the left kidney with a benign right renal cyst. 1. Dictated by... Slava Wilson M.D. [facility] A Service of [facility] RADIOLOGY TEXT RESULTS PATIENT: BYRON VELASQUEZ LOCATION: [facility] 572-01 : 49 UNIT #: [id number] AGE: [address]: Ash Gee MD SEX: M ORDER DR: THIS IS AN ELECTRONICALLY VERIFIED REPORT Slava Wilson M.D. at 05/22/2017 8:20 AM BLM/pcl TD: 05/13/2017 11:59 JOB #: [id number] MEDICAL IMAGING REPORT Page 1 of 1 COPY
--- NOTE | ~2017-05-13 | US67 ---
[facility] A Service of [facility] & [facility] RADIOLOGY TEXT RESULTS PATIENT: BYRON VELASQUEZ LOCATION: [facility] 572-01 : 49 UNIT #: [id number] AGE: [address]: Ash Gee MD SEX: M ORDER DR: [id number] [facility] [address] [place], [place] [address] [id number] I MR#: [id number] Acc #: [id number] NAME: BYRON VELASQUEZ : 1950 SEX: M STUDY DATE/TIME: 05/15/2017 9:31 UNIT: [facility] ROOM: [facility] STUDY DESCRIPTION: US Gallbladder Attending Physician: Ash Gee M.D. Ordering Physician: Ash Gee M.D. Primary Care Physician: Gilmar Smith M.D. MEDICAL IMAGING REPORT This report is preliminary unless electronic signature is present EXAM Gallbladder ultrasound, 05/15/2017. HISTORY Gallbladder distension on CT. Abdominal pain for 3 days. Recent stroke. Hypertension. Hyperlipidemia. COMPARISON CT abdomen and pelvis without contrast 05/14/2017. FINDINGS The pancreas appears unremarkable. Pancreatic duct caliber is within normal limits, 2 mm. The liver appears mildly steatotic. No focal liver lesions are identified. Portal vein is patent. The imaged segment intrahepatic IVC has a normal gonzalez-scale appearance. The liver size is within normal limits, 16.2 cm. The common bile duct caliber is within normal limits, 4 mm. Linear echogenic nonshadowing focus is seen within the CBD (image 41 of 58). This raises the possibility of choledocholithiasis. However, no intrahepatic biliary ductal dilation is seen. The echogenic nonshadowing foci consistent with gallstones are present but no pericholecystic fluid or abnormal gallbladder wall thickening is identified. No ascites is evident. Incidental note is made of a right renal cyst measuring up to 4.1 cm. Another hypoechoic lesion is seen within the posterior right mid kidney measuring up to 4.2 cm, indeterminate as to whether it represents a solid renal lesion or cyst, but it demonstrates normal internal vascularity. IMPRESSION 1. Echogenic nonshadowing foci are demonstrated within the common bile duct and may represent CBD stones, as questioned on the recent CT STS. [facility] A Service of [facility] & [facility] RADIOLOGY TEXT RESULTS PATIENT: BYRON VELASQUEZ LOCATION: [facility] 572-01 : 49 UNIT #: [id number] AGE: [address]: Ash Gee MD SEX: M ORDER DR: from 05/14/2017. No abnormal intrahepatic or extrahepatic biliary ductal dilation is seen. 2. Small gallstones are present, but no abnormal gallbladder wall thickening or pericholecystic fluid/inflammation is evident. 3. There is a hypoechoic lesion, posterior right mid kidney, measuring nearly 4.2 cm. It is indeterminate whether this represents a hemorrhagic/proteinaceous cyst or solid renal lesion. It is recognized that CT abdomen and pelvis without contrast and with contrast has been ordered for this same date. Please refer to that report for additional findings. Incidental note is made of a simple right renal cyst. 4. Suspected mild hepatic steatosis. Dictated by... Lilly Harmon M.D. THIS IS AN ELECTRONICALLY VERIFIED REPORT Lilly Harmon M.D. at 05/16/2017 2:01 PM ROCHELLE/kathy TD: 05/15/2017 13:21 JOB #: [id number] MEDICAL IMAGING REPORT Page 1 of 1 COPY
--- NOTE | ~2017-05-13 | CR72 ---
[facility] A Service of [facility] & [facility] RADIOLOGY TEXT RESULTS PATIENT: BYRON VELASQUEZ LOCATION: [facility] 572-01 : 49 UNIT #: [id number] AGE: [address]: Ash Gee MD SEX: M ORDER DR: [id number] [facility] [address] [facility]. [place], [place] [address] [id number] I MR#: [id number] Acc #: [id number] NAME: BYRON VELASQUEZ : 1950 SEX: M STUDY DATE/TIME: 05/14/2017 8:43 UNIT: [facility] ROOM: [facility] STUDY DESCRIPTION: CR Chest Single View Portable Attending Physician: Ash Gee M.D. Ordering Physician: Edison Archibald M.D. Primary Care Physician: Gilmar Smith M.D. MEDICAL IMAGING REPORT This report is preliminary unless electronic signature is present EXAM Portable chest INDICATIONS Shortness of breath today. COMPARISON STUDIES No comparisons. FINDINGS Chin positioning obscures the right apex and it is unable to be adequately evaluated. There is no definite acute findings. Low-volume inspiration. Heart size probably within normal limits. IMPRESSION Limited study due to overlying chin positioning as the right apex cannot be adequately evaluated. No acute findings within the limitations of the study. Dictated by... Pro Rogers M.D. THIS IS AN ELECTRONICALLY VERIFIED REPORT Pro Rogers M.D. at 05/15/2017 7:50 AM ARS/pcl TD: 05/14/2017 13:27 JOB #: [id number] MEDICAL IMAGING REPORT Page 1 of 1 COPY
--- NOTE | ~2017-05-13 | HP ---
Unit #: [id number] #: [id number] Patient: BYRON VELASQUEZ [id number] [address] [address] [id number] I MR#: [id number] NAME: BYRON VELASQUEZ ROOM: 572 Age: 66 Sex: M Admission Date: 05/13/2017 : 1950 Attending Physician: Ash Gee M.D. Primary Care Physician: Gilmar Smith M.D. HISTORY AND PHYSICAL CHIEF COMPLAINT Bleeding from penis. HISTORY OF PRESENT ILLNESS The patient is a 66-year-old male resident of the [facility] with a history of epilepsy, nontraumatic intracerebral hemorrhage, hyperlipidemia, major depressive disorder, brought to the emergency room with bleeding from the penis. The patient is a poor historian and the history is obtained by speaking to the patient's at the bedside and the ER physician. The patient had a CT of the abdomen and pelvis that showed hemorrhagic cystitis and is being admitted for the above reasons. While awaiting the bed upstairs, the patient was found to be in questionable SVT in the emergency room. The patient received Dilaudid and Ativan 0.5 mg. The patient's rhythm is back to the normal sinus rhythm running at 115 to 117. The patient is more sleepy now. The patient has a Ruiz catheter draining pink red blood with continuous bladder irrigation. The patient is on aspirin and no other blood thinners. PAST MEDICAL HISTORY History of epilepsy, UTI, pneumonia, essential hypertension, nontraumatic intracerebral hemorrhage, hyperlipidemia, major depressive disorder, primary insomnia. PAST SURGICAL HISTORY None. HOME MEDICATIONS 1. Cymbalta. 2. Pantoprazole. 3. Hydrocodone. 4. Keppra. 5. Meclizine. 6. Metoprolol. 7. Mirtazapine. 8. Ondansetron. 9. Tizanidine. SOCIAL HISTORY No history of smoking cigarettes, drinking alcohol or any illicit drug abuse. FAMILY HISTORY Reviewed and none. Unit #: [id number] #: [id number] Patient: BYRON VELASQUEZ REVIEW OF SYMPTOMS Unable to obtain. PHYSICAL EXAMINATION GENERAL APPEARANCE: The patient is lying on the bed, not in acute distress. VITAL SIGNS: Temperature 98.7. Pulse 96. Respiration 16. Blood pressure 180/108. Sating 95%. HEENT: Head atraumatic, normocephalic. ENT: Pupils equal, round, reacting to light and accommodation. Dry mucous membranes. NECK: Supple. LUNGS: Decreased air entry at the bases. HEART: Regular rate and rhythm. ABDOMEN: Soft. Positive bowel sounds. GENITOURINARY: Positive with a Ruiz catheter with a pinkish red blood draining. EXTREMITIES: No cyanosis. No clubbing. NEUROLOGIC: The patient is sleeping, lethargic, unable to answer, follow the commands. DIAGNOSTIC STUDIES LABORATORY: WBC 12, hemoglobin 12, hematocrit 36.9, platelets 366. INR one. UA shows 3+ protein, 3+ blood, innumerable urine RBCs, innumerable urine WBCs. Sodium 137, potassium 3.4, chloride 103, bicarb 24, glucose 102, BUN 14, creatinine one, AST 22, ALT 16, alkaline phosphatase 94, albumin 3.3. Patient's repeat hemoglobin is 12.2, hematocrit 38, WBC 49.3. Hemoglobin 10.8, hematocrit 33.9. Lactic acid 3.8. IMAGING: CT of the abdomen and pelvis shows there is fat stranding adjacent to the fluid distended urinary bladder, which also contains internal gas and a large amount of internal blood count. It is likely accounting for the patient's hematuria. The finding would seem to reflect hemorrhagic cystitis or possibly hemorrhage secondary to trauma, although the fat stranding would seem to favor Infectious or inflammatory etiology. Clinical correlation recommended. There is a question focus of gas in the proximal left ureter of uncertain etiology, possibly transmitted from the bladder. Ascending pyelitis cannot be excluded. Staghorn calculus in the left kidney. No evidence of ureteral calculus. Regarding the finding in the urine bladder, followup ultrasound is recommended. Mass-like density in the subareolar left breast measuring up to 3.5 cm, possibly reflecting gynecomastia. Chronic fracture of the right femoral neck with subluxation of the distal femur at the intertrochanteric region relative to the femoral head. The femoral head remains seated within acetabulum. High-riding testicles within the inguinal canals, possibly transmitted. Nonspecific nodular densities in the subcutaneous midline fat just to the left of the midline near the umbilicus. The patient is near total colectomy with a diverting colostomy. There is no evidence of complication. There are tree-in-bud nodular opacities throughout the lung bases suggesting bronchiolitis, possibly due to microaspiration. The largest nodule in the left lung base measures up to 6 mm. Coronary artery calcifications. ASSESSMENT 1. Sepsis. 2. Hemorrhagic cystitis. 3. Tachycardia. 4. Anemia. Unit #: [id number] #: [id number] Patient: BYRON VELASQUEZ PLAN To admit the patient to the inpatient. The patient will be started on sepsis protocol. The patient will be started on broad antibiotics with Zosyn. The patient will be seen by Urology. The patient will have repeat labs in the morning and further recommendations will follow. Dictated by Bing Zambrano TD: 05/14/2017 10:59 JOB #: [id number] HISTORY AND PHYSICAL Page 1 of 1 X FREDI PULLIAM MD X HISTORY AND PHYSICAL
--- NOTE | ~2017-05-13 | CT71 ---
[facility] A Service of [facility] RADIOLOGY TEXT RESULTS PATIENT: BYRON VELASQUEZ LOCATION: [facility] 572-01 : [birth year] UNIT #: [id number] AGE: [address]: Ash Gee MD SEX: M ORDER DR: [id number] [place] [id number] [facility]. [place], [place] [address] [id number] I MR#: [id number] Acc #: [id number] NAME: BYRON VELASQUEZ : 1950 SEX: M STUDY DATE/TIME: 05/19/2017 17:53 UNIT: [facility] ROOM: [facility] STUDY DESCRIPTION: CT Head Wo Contrast Attending Physician: Ash Gee M.D. Ordering Physician: Ash Gee M.D. Primary Care Physician: Gilmar Smith M.D. MEDICAL IMAGING REPORT This report is preliminary unless electronic signature is present EXAM CT head without contrast, 05/19/2017 HISTORY 66-year-old male with new onset confusion today. History of intracerebral hemorrhage. COMPARISON Brain MRI 05/19/2017. TECHNIQUE Routine unenhanced axial images performed through the brain. This CT exam was performed with one or more of the following radiation dose reduction techniques: automatic exposure control, adjustment of mA and/or kV according to patient size, and iterative reconstruction. FINDINGS The examination is markedly limited secondary to motion artifact. Allowing for this, there is a suspected small focus of parenchymal hemorrhage along the posterior aspect of the right insular cortex. There is also some questionable intraparenchymal hemorrhage in the left cerebellar hemisphere with associated encephalomalacia. This is not a definite finding given the degree of motion artifact. Consider repeat exam when the patient is better able to tolerate the study. There is extensive advanced chronic small vessel disease noted throughout the supratentorial white mater. No other findings of acute hemorrhage or infarction are noted. No acute bony abnormality. Visualized paranasal sinuses and mastoid air cells are clear. IMPRESSION 1. Markedly motion-limited exam. There is some questionable hemorrhage [facility] A Service of [facility] RADIOLOGY TEXT RESULTS PATIENT: BYRON VELASQUEZ LOCATION: [facility] 572-01 : [birth year] UNIT #: [id number] AGE: [address]: Ash Gee MD SEX: M ORDER DR: and encephalomalacia in the left cerebellar hemisphere. This is not a definite finding and correlation with any available outside studies would be helpful. Consider repeat imaging when the patient is better able to tolerate the exam. There is also a questionable small focus of parenchymal hemorrhage in the right posterior insular cortex. 2. Extensive advanced chronic small vessel disease. Dictated by... Kimani Pena M.D. THIS IS AN ELECTRONICALLY VERIFIED REPORT Kimani Pena M.D. at 05/24/2017 1:34 PM DAGO/alejandro TD: 05/20/2017 02:28 JOB #: [id number] MEDICAL IMAGING REPORT Page 1 of 1 COPY
[2017-05-13 08:36] LABS: BASOPHIL# 0.1 X10e3 (0-0.3); BASOPHIL% 0.5 % (0-2.5); EOSINOPHIL# 0.2 X10e3 (0-0.7); HEMATOCRIT 36.9 % (38.0-50.0); LYMPHOCYTE# 2.2 X10e3 (1.0-3.5); LYMPHOCYTE% 18.7 % (17.0-45.0); MEAN CELL VOLUME 86.5 FL (83-96); MEAN CORPUSCULAR HEMOGLOBIN 28.1 PG (28-34); MEAN CORPUSCULAR HGB CONC 32.5 g/dL (30-36); MEAN PLATELET VOLUME 7.7 FL (6.5-11.5); MONOCYTE# 0.8 X10e3 (0-1.0); MONOCYTE% 6.4 % (3.0-12.0); NEUTROPHIL# 8.7 X10e3 (1.5-7.1); NEUTROPHIL% 72.4 % (40-75); PLATELET COUNT 366 X10e3 (140-420); RED BLOOD COUNT 4.26 X10e (3.90-5.60)
[2017-05-13 08:37] LABS: DIFF IND NO
[2017-05-13 08:51] LABS: PARTIAL THROMBOPLASTIN TIME 28.2 SECONDS (23.5-31.3); PROTHROMBIN TIME (PATIENT) 10.7 SECONDS (10.0-11.7)
[2017-05-13 08:54] LABS: URINE SOURCE CLEAN CATCH
[2017-05-13 08:58] LABS: URINE BILIRUBIN NEG (NEG); URINE BLOOD 3+ (NEG); URINE GLUCOSE NORM (NORM); URINE KETONE NEG (NEG); URINE LEUKOCYTE ESTERASE NEG (NEG); URINE NITRATE NEG (NEG); URINE PROTEIN 3+ (NEG); URINE UROBILINOGEN NORM (NORM)
[2017-05-13 09:02] LABS: URINE APPEARANCE BLOODY
[2017-05-13] MEDS ORDERED: CHEWABLE ASPIRI81 MG PO (09:02)
[2017-05-13] MEDS ORDERED: TYLENOL EXTRA500 M1 PO (09:02)
[2017-05-13] MEDS ORDERED: CATAPRES0.1 MG PO (09:03)
[2017-05-13] MEDS ORDERED: ATIVAN0.5 MG PO (09:03)
[2017-05-13] MEDS ORDERED: LIPITOR40 MG PO (09:03)
[2017-05-13] MEDS ORDERED: DULOXETINE HCL60 MG PO (09:04)
[2017-05-13] MEDS ORDERED: ESOMEPRAZOLE MA40 MG PO (09:05)
[2017-05-13] MEDS ORDERED: HYDROCODON-ACE1 EAC7 PO (09:05)
[2017-05-13] MEDS ORDERED: MECLIZINE HCL25 M1 PO (09:06)
[2017-05-13] MEDS ORDERED: METOCLOPRAMIDE H5 M1 PO (09:06)
[2017-05-13] MEDS ORDERED: KEPPRA500 M2 PO (09:06)
[2017-05-13] MEDS ORDERED: MIRTAZAPINE7.5 MG PO (09:07)
[2017-05-13] MEDS ORDERED: METOPROLOL TAR25 MG PO (09:07)
[2017-05-13] MEDS ORDERED: TIZANIDINE HCL2 M1 PO (09:08)
[2017-05-13] MEDS ORDERED: ONDANSETRON HCL4 M1 PO (09:08)
[2017-05-13] MEDS ORDERED: 1 (09:08)
[2017-05-13 09:12] LABS: URBCS1 AUWI INNUM /[HPF] (0-2); UWBCS1 AUWI INNUM (0-5)
[2017-05-13 09:17] LABS: URINE COLOR RED
[2017-05-13 09:18] LABS: CULTURE INDICATED? YES
[2017-05-13 11:09] LABS: ALBUMIN SERUM 3.3 g/dL (3.5-5.0); BILIRUBIN,TOTAL 0.6 mg/dL (0.2-2.0); CALCIUM SERUM 8.9 mg/dL (8.4-10.2); GLOM FILT RATE Estimated 77.5 mL/min (>60); POTASSIUM 3.4 mmol/L (3.5-5.1)
[2017-05-13 15:56] LABS: HEMOGLOBIN 12.2 gm/dL (13.0-16.0)
[2017-05-13 17:55] LABS: HEMATOCRIT 33.9 % (38.0-50.0); HEMOGLOBIN 10.8 gm/dL (13.0-16.0); MEAN CELL VOLUME 86.7 FL (83-96); MEAN CORPUSCULAR HEMOGLOBIN 27.7 PG (28-34); MEAN CORPUSCULAR HGB CONC 31.9 g/dL (30-36); MEAN PLATELET VOLUME 7.9 FL (6.5-11.5); RED BLOOD COUNT 3.91 X10e (3.90-5.60); RED CELL DISTRIBUTION WIDTH 13.4 % (11.0-15.5); WHITE BLOOD COUNT 49.3 X10e3 (4.0-10.5)
[2017-05-14 04:32] LABS: BASOPHIL# 0.1 X10e3 (0-0.3); BASOPHIL% 0.3 % (0-2.5); EOSINOPHIL# 0.1 X10e3 (0-0.7); EOSINOPHIL% 0.4 % (0.0-7.0); LYMPHOCYTE# 1.5 X10e3 (1.0-3.5); LYMPHOCYTE% 5.6 % (17.0-45.0); MEAN CELL VOLUME 86.8 FL (83-96); MEAN CORPUSCULAR HEMOGLOBIN 28.1 PG (28-34); MEAN CORPUSCULAR HGB CONC 32.4 g/dL (30-36); MONOCYTE# 1.4 X10e3 (0-1.0); NEUTROPHIL% 88.7 % (40-75); PLATELET COUNT 317 X10e3 (140-420); RED BLOOD COUNT 3.57 X10e (3.90-5.60); RED CELL DISTRIBUTION WIDTH 13.8 % (11.0-15.5); WHITE BLOOD COUNT 27.1 X10e3 (4.0-10.5)
[2017-05-14 04:35] LABS: DIFF IND YES
[2017-05-14 04:47] LABS: PLATELET ESTIMATE NORMAL (NORMAL); RBC NORMAL YES; VACUOLIZATION P
[2017-05-14 04:54] LABS: BUN/CREATININE RATIO 13.84; CALCIUM SERUM 8.4 mg/dL (8.4-10.2); CREATININE SERUM 1.3 mg/dL (0.6-1.4); GLOM FILT RATE Estimated 56.5 mL/min (>60); POTASSIUM 4.3 mmol/L (3.5-5.1)
[2017-05-14 08:24] LABS: ARTERIAL BLD GAS O2 SATURATION 97.9 % (90.0-100.0); ARTERIAL BLOOD GAS CARBOXY HB 0.4 %sat (0.0-9.0); ARTERIAL BLOOD GAS HCO3 26.2 mmol/L; ARTERIAL BLOOD GAS MET HB 1.2 %sat (0.0-2.0); ARTERIAL BLOOD GAS PCO2 39.4 mmHg (35.0-45.0); ARTERIAL BLOOD GAS pH 7.431 (7.350-7.450)
[2017-05-14 08:25] LABS: ARTERIAL BLOOD GAS ART SITE RIGHT RADIAL; ARTERIAL BLOOD GAS DELIVERY NASAL CANNULA; ARTERIAL DRAW? YES
[2017-05-15 09:11] LABS: BASOPHIL# 0.2 X10e3 (0-0.3); BASOPHIL% 1.1 % (0-2.5); EOSINOPHIL# 0.3 X10e3 (0-0.7); EOSINOPHIL% 1.9 % (0.0-7.0); HEMATOCRIT 30.7 % (38.0-50.0); HEMOGLOBIN 9.9 gm/dL (13.0-16.0); LYMPHOCYTE# 1.4 X10e3 (1.0-3.5); LYMPHOCYTE% 9.9 % (17.0-45.0); MEAN CELL VOLUME 86.7 FL (83-96); MEAN CORPUSCULAR HGB CONC 32.3 g/dL (30-36); MEAN PLATELET VOLUME 7.9 FL (6.5-11.5); MONOCYTE% 6.8 % (3.0-12.0); NEUTROPHIL# 11.4 X10e3 (1.5-7.1); NEUTROPHIL% 80.3 % (40-75); PLATELET COUNT 307 X10e3 (140-420); RED BLOOD COUNT 3.54 X10e (3.90-5.60); RED CELL DISTRIBUTION WIDTH 13.9 % (11.0-15.5); WHITE BLOOD COUNT 14.1 X10e3 (4.0-10.5)
[2017-05-15 09:20] LABS: DIFF IND NO
[2017-05-15 09:50] LABS: ALBUMIN SERUM 2.7 g/dL (3.5-5.0); BILIRUBIN,TOTAL 0.4 mg/dL (0.2-2.0); BUN/CREATININE RATIO 14.44; CALCIUM SERUM 8.9 mg/dL (8.4-10.2); CREATININE SERUM 0.9 mg/dL (0.6-1.4); GLOM FILT RATE Estimated 88.1 mL/min (>60); MAGNESIUM 1.8 mg/dL (1.6-3.0); POTASSIUM 4.2 mmol/L (3.5-5.1); PROTEIN TOTAL SERUM 5.7 g/dL (6.0-8.3)
[2017-05-16 10:20] LABS: HEMATOCRIT 31.9 % (38.0-50.0); HEMOGLOBIN 10.7 gm/dL (13.0-16.0); MEAN CORPUSCULAR HEMOGLOBIN 28.6 PG (28-34); MEAN CORPUSCULAR HGB CONC 33.7 g/dL (30-36); MEAN PLATELET VOLUME 7.5 FL (6.5-11.5); RED BLOOD COUNT 3.75 X10e (3.90-5.60); RED CELL DISTRIBUTION WIDTH 13.7 % (11.0-15.5); WHITE BLOOD COUNT 14.3 X10e3 (4.0-10.5)
[2017-05-17 06:26] LABS: HEMATOCRIT 28.4 % (38.0-50.0); HEMOGLOBIN 9.3 gm/dL (13.0-16.0); MEAN CELL VOLUME 86.4 FL (83-96); MEAN CORPUSCULAR HEMOGLOBIN 28.5 PG (28-34); MEAN CORPUSCULAR HGB CONC 32.9 g/dL (30-36); MEAN PLATELET VOLUME 7.6 FL (6.5-11.5); RED BLOOD COUNT 3.28 X10e (3.90-5.60); RED CELL DISTRIBUTION WIDTH 13.5 % (11.0-15.5); WHITE BLOOD COUNT 9.2 X10e3 (4.0-10.5)
[2017-05-17 07:14] LABS: ALBUMIN SERUM 2.7 g/dL (3.5-5.0); BILIRUBIN,TOTAL 0.6 mg/dL (0.2-2.0); CALCIUM SERUM 8.5 mg/dL (8.4-10.2); GLOM FILT RATE Estimated 77.5 mL/min (>60); POTASSIUM 4.2 mmol/L (3.5-5.1); PROTEIN TOTAL SERUM 5.2 g/dL (6.0-8.3)
[2017-05-18 05:21] LABS: HEMATOCRIT 27.7 % (38.0-50.0); HEMOGLOBIN 9.1 gm/dL (13.0-16.0); MEAN CELL VOLUME 86.5 FL (83-96); MEAN CORPUSCULAR HEMOGLOBIN 28.5 PG (28-34); MEAN CORPUSCULAR HGB CONC 32.9 g/dL (30-36); RED BLOOD COUNT 3.2 X10e (3.90-5.60); RED CELL DISTRIBUTION WIDTH 13.8 % (11.0-15.5); WHITE BLOOD COUNT 6.7 X10e3 (4.0-10.5)
[2017-05-18 07:11] LABS: BUN/CREATININE RATIO 15.55; CALCIUM SERUM 8.5 mg/dL (8.4-10.2); CREATININE SERUM 0.9 mg/dL (0.6-1.4); GLOM FILT RATE Estimated 88.1 mL/min (>60); POTASSIUM 4.3 mmol/L (3.5-5.1)
[2017-05-19 06:33] LABS: HEMATOCRIT 31.5 % (38.0-50.0); MEAN CELL VOLUME 88.9 FL (83-96); MEAN CORPUSCULAR HEMOGLOBIN 28.3 PG (28-34); MEAN CORPUSCULAR HGB CONC 31.8 g/dL (30-36); MEAN PLATELET VOLUME 7.4 FL (6.5-11.5); RED BLOOD COUNT 3.54 X10e (3.90-5.60); RED CELL DISTRIBUTION WIDTH 14.4 % (11.0-15.5)
[2017-05-19 06:58] LABS: CALCIUM SERUM 8.7 mg/dL (8.4-10.2); GLOM FILT RATE Estimated 77.5 mL/min (>60); POTASSIUM 4.4 mmol/L (3.5-5.1)
[2017-05-19 11:58] LABS: ARTERIAL BLD GAS O2 SATURATION 95.5 % (90.0-100.0); ARTERIAL BLOOD GAS CARBOXY HB 0.5 %sat (0.0-9.0); ARTERIAL BLOOD GAS HCO3 25.5 mmol/L; ARTERIAL BLOOD GAS MET HB 0.9 %sat (0.0-2.0); ARTERIAL BLOOD GAS PCO2 38.7 mmHg (35.0-45.0); ARTERIAL BLOOD GAS pH 7.426 (7.350-7.450)
[2017-05-19 11:59] LABS: ARTERIAL BLOOD GAS ALLEN TEST N; ARTERIAL BLOOD GAS ART SITE RIGHT RADIAL; ARTERIAL BLOOD GAS DELIVERY ROOM AIR; ARTERIAL BLOOD GAS PO2 79.1 mmHg (80.0-100); ARTERIAL DRAW? YES
[2017-05-19 12:23] LABS: FOLATE (FOLIC ACID) 7.1 ng/mL (>5.8)
== END 2017-05-20 18:06 | DRG 871 ==
LOC: CED 07:17 → CEDOF 12:00 → CED 12:00 → CEDOF 12:29 → C5C 18:29 → CED 18:29 → CEDOF 18:29 → C5C 18:29 → CICCU2 22:09 → CEDOF 22:09 → CICCU2 05-14 05:58 → C5C 05-14 10:36 → CICCU2 05-14 10:36 → C5C 05-14 10:36
PROVIDERS: Emergency Medicine; Family Medicine; Internal Medicine; Nurse Practitioner; Psychiatry & Neurology Neurology; Specialist; Surgery
DX: A41.50 Gram-negative sepsis, unspecified (principal); G92 Toxic encephalopathy; I69.320 Aphasia following cerebral infarction; R13.11 Dysphagia, oral phase; R13.13 Dysphagia, pharyngeal phase; I47.1 Supraventricular tachycardia; F03.90 Unspecified dementia, unspecified severity, without behavioral disturbance, psychotic disturbance, mood disturbance, and anxiety; N39.0 Urinary tract infection, site not specified; Z87.440 Personal history of urinary (tract) infections; R31.0 Gross hematuria; N40.0 Benign prostatic hyperplasia without lower urinary tract symptoms; G40.909 Epilepsy, unspecified, not intractable, without status epilepticus; I10 Essential (primary) hypertension; E78.5 Hyperlipidemia, unspecified; F32.9 Major depressive disorder, single episode, unspecified; F51.01 Primary insomnia; N63 Unspecified lump in breast; N20.0 Calculus of kidney
CPT/HCPCS: 36415; 36600; 51702; 70450; 70551; 71010; 71020; 74022; 74176; 74177; 74230; 76705; 80048; 80053; 81003; 82308; 82607; 82746; 82803; 82947; 83036; 83605; 83735; 84100; 84443; 85014; 85018; 85025; 85027; 85610; 85730; 86850; 86900; 86901; 87040; 87086; 87088; 87186; 92526; 92610; 92611; 93005; 94640; 94760; 99285; C9113; C9254; G8996-GN; G8997-GN; G8998-GN; J0695; J0696; J1170; J1953; J2060; J2405; J2543; J3370; J3490; Q9967

== ENCOUNTER 2017-05-31 20:09 | Emergency (ER) | payer MEDICARE, OTHER ==
[~2017-05-31 20:09] MED LIST: 1; ATIVAN0.5 MG PO; CATAPRES0.1 MG PO; CHEWABLE ASPIRI81 MG PO; DULOXETINE HCL60 MG PO; ESOMEPRAZOLE MA40 MG PO; HYDROCODON-ACE1 EAC7 PO; KEPPRA500 M2 PO; LIPITOR40 MG PO; MECLIZINE HCL25 M1 PO; METOCLOPRAMIDE H5 M1 PO; METOPROLOL TAR25 MG PO; MIRTAZAPINE7.5 MG PO; ONDANSETRON HCL4 M1 PO; TIZANIDINE HCL2 M1 PO; TYLENOL EXTRA500 M1 PO
[2017-05-31 21:13] LABS: BASOPHIL# 0.1 X10e3 (0-0.3); BASOPHIL% 1.1 % (0-2.5); EOSINOPHIL# 0.4 X10e3 (0-0.7); EOSINOPHIL% 4.9 % (0.0-7.0); HEMATOCRIT 32.5 % (38.0-50.0); HEMOGLOBIN 10.4 gm/dL (13.0-16.0); LYMPHOCYTE# 2.3 X10e3 (1.0-3.5); LYMPHOCYTE% 26.6 % (17.0-45.0); MEAN CELL VOLUME 86.5 FL (83-96); MEAN CORPUSCULAR HEMOGLOBIN 27.8 PG (28-34); MEAN CORPUSCULAR HGB CONC 32.1 g/dL (30-36); MEAN PLATELET VOLUME 8.8 FL (6.5-11.5); MONOCYTE# 0.9 X10e3 (0-1.0); MONOCYTE% 10.6 % (3.0-12.0); NEUTROPHIL# 4.9 X10e3 (1.5-7.1); NEUTROPHIL% 56.8 % (40-75); PLATELET COUNT 294 X10e3 (140-420); RED BLOOD COUNT 3.76 X10e (3.90-5.60); RED CELL DISTRIBUTION WIDTH 14.4 % (11.0-15.5); WHITE BLOOD COUNT 8.6 X10e3 (4.0-10.5)
[2017-05-31 21:19] LABS: DIFF IND NO
[2017-05-31 21:32] LABS: PARTIAL THROMBOPLASTIN TIME 29.2 SECONDS (23.5-31.3); PROTHROMBIN TIME (PATIENT) 10.7 SECONDS (10.0-11.7)
[2017-05-31 21:41] LABS: BILIRUBIN,TOTAL 0.2 mg/dL (0.2-2.0); BUN/CREATININE RATIO 28.18; CALCIUM SERUM 8.7 mg/dL (8.4-10.2); CREATININE SERUM 1.1 mg/dL (0.6-1.4); GLOM FILT RATE Estimated 69.1 mL/min (>60); POTASSIUM 3.5 mmol/L (3.5-5.1); PROTEIN TOTAL SERUM 6.5 g/dL (6.0-8.3)
[2017-05-31 22:27] LABS: URINE SOURCE CLEAN CATCH
[2017-05-31 22:55] LABS: URINE APPEARANCE TURBID; URINE BLOOD 1+ (NEG); URINE COLOR RED; URINE GLUCOSE NEG (NEG); URINE KETONE NEG (NEG); URINE LEUKOCYTE ESTERASE 3+ (NEG); URINE NITRATE POS (NEG); URINE PROTEIN 1+ (NEG); URINE SPECIFIC GRAVITY 1.036 (1.003-1.035); URINE UROBILINOGEN 0.2 MG/DL (NEG)
[2017-05-31 22:58] LABS: CULTURE INDICATED? YES; URBCS1 AUWI INNUM /[HPF] (0-2); URINE BACTERIA AUWI 2+ (NEGATIVE); URINE BILIRUBIN NEG (NEG); URINE SQUAMOUS EPITHELIAL CELL MODERATE /[HPF]; UWBCS1 AUWI 25-50 (0-5)
== END 2017-06-01 07:04 | disposition home or self-care (01) ==
LOC: CED 20:09
PROVIDERS: Emergency Medicine
DX: N30.91 Cystitis, unspecified with hematuria (principal); R31.0 Gross hematuria; R41.0 Disorientation, unspecified; I10 Essential (primary) hypertension; G40.909 Epilepsy, unspecified, not intractable, without status epilepticus; E78.5 Hyperlipidemia, unspecified; Z93.3 Colostomy status; Z79.82 Long term (current) use of aspirin; Z79.899 Other long term (current) drug therapy
CPT/HCPCS: 36415; 80053; 81003; 85025; 85610; 85730; 87086; 87088; 87186; 99283; J0696

== ENCOUNTER 2017-07-05 14:28 | Inpatient (IN) | payer MEDICARE, OTHER ==
[~2017-07-05] VITALS: Ht 172.7 cm; Wt 80.0 kg
--- NOTE | ~2017-07-05 | DS ---
Unit #: [id number] #: [id number] Patient: BYRON VELASQUEZ [id number] [address] [place], [place] [address] [id number] I MR#: [id number] NAME: BYRON VELASQUEZ ROOM: [facility] Age: 67 Sex: M Admission Date: 07/05/2017 : 1950 Discharge Date: 07/10/2017 Attending Physician: Serjio Diaz M.D. Primary Care Physician: Gilmar Smith M.D. DISCHARGE SUMMARY DISCHARGE DIAGNOSES 1. Sepsis. 2. Urinary tract infection. 3. Toxic metabolic encephalopathy. 4. Immobility syndrome. HOSPITAL COURSE The patient is a 67-year-old male status post intracerebral hemorrhage in 2013 that has left him immobile and with aphasia. He presented to [facility] after he was noted to be lethargic. In the alf he was noted to have abnormal laboratories consisting of white blood cell count of 24,000 with left shift and positive UA. As a result, the patient was admitted. The patient was started on Rocephin and admitted. His initial culture came back consistent with mixed gram-positive growth. As a result, repeat UA was collected, which showed again 3+ leukocyte esterase, innumerable white cells and 1+ bacteria, which was actually slightly improved from admission. Repeat cultures are negative. Given mixed gram-positive growth, the patient had been started on vancomycin, and repeat cultures were drawn after the patient had received this. It is my feeling that the patient's repeat cultures are negative despite a very positive UA because of this. As a result, the patient is being discharged to the alf on 3 more days of vancomycin. Per family, the lethargy and confusion that the patient had upon presentation has resolved, and the patient is now baseline. DISCHARGE MEDICATIONS 1. DuoNeb q.4 hours p.r.n. 2. Zuplenz 4 mg p.o. t.i.d. as needed for nausea. 3. Acetaminophen 500 mg p.o. t.i.d. 4. Neurontin 200 mg p.o. t.i.d. 5. Keppra 500 mg p.o. b.i.d. 6. Cymbalta 60 mg p.o. daily. 7. Remeron 7.5 mg p.o. q.h.s. 8. Meclizine 25 mg p.o. t.i.d. as needed for vertigo. 9. Ativan 0.5 mg daily. 10. Lopressor 25 mg p.o. b.i.d. 11. Lipitor 40 mg p.o. q.h.s. 12. Clonidine 0.2 mg p.o. t.i.d. 13. Reglan 5 mg p.o. t.i.d. 14. Finasteride 5 mg p.o. daily. 15. Aspirin 81 mg daily. 16. Lortab 5/325 mg 1 p.o. q.4 hours p.r.n. pain. Unit #: [id number] #: [id number] Patient: BYRON VELASQUEZ 17. Nexium 40 mg p.o. daily. 18. Vancomycin, pharmacy to dose, x3 days. FOLLOWUP The patient should keep his regularly scheduled followup with his physician at [facility]. Dictated by... Serjio Diaz M.D. JOSSIE/berto TD: 07/10/2017 15:30 JOB #: [id number] DISCHARGE SUMMARY Page 1 of 1 X Serjio Diaz MD X DISCHARGE SUMMARY
--- NOTE | ~2017-07-05 | EKG ---
PATIENT: BYRON VELASQUEZ UNIT #: [id number] Ventricular Rate: 91 BPM Atrial Rate: 91 BPM P-R Interval: 144 ms QRS Duration: 90 ms Q-T Interval: 370 ms QTC Calculation(Bezet): 455 ms P Storden: 78 degrees Calculated R Storden: 10 degrees Calculated T Storden: 46 degrees Diagnosis Line: Normal sinus rhythm Diagnosis Line: Normal ECG Diagnosis Line: When compared with ECG of 13-MAY-2017 17:52, Diagnosis Line: No significant change was found Diagnosis Line: Confirmed by GRISEL MONDRAGON MD ([id number]) on 07/06/2017 Diagnosis Line: 7:10:01 PM INTERPRETING MD: GIANCARLO HARRISON
--- NOTE | ~2017-07-05 | HP ---
Unit #: [id number] #: [id number] Patient: BYRON VELASQUEZ [id number] [address] [place], [place] [address] [id number] I MR#: [id number] NAME: BYRON VELASQUEZ ROOM: 56 Age: 66 Sex: M Admission Date: 07/05/2017 : 1950 Attending Physician: Fredi Koch M.D. Primary Care Physician: Gilmar Smith M.D. HISTORY AND PHYSICAL CHIEF COMPLAINT Abnormal labs. HISTORY OF PRESENT ILLNESS The patient is a 66-year-old male who was seen at the [facility] with a history of epilepsy, nontraumatic intracerebral hemorrhage, hyperlipidemia and major depressive disorder, brought to the emergency room with abnormal labs. The patient is lethargic and is unable to provide any history and the history is obtained by speaking to the patient's at the bedside and the ER physician. The patient had blood work at [facility] this morning and was abnormal and was sent to the emergency room. The patient was found to have WBC count up to 24.1 thousand with a bandemia of 12% and UTI with a UA showing 3+ leukocyte esterase, enumerable urine WBC, 4+ urine bacteria. The chest x-ray shows left base atelectasis versus pneumonia and the patient is being admitted for the above reasons. The patient has been lethargic for the last few days, associated with nausea and vomiting, and a productive cough yesterday after the fpc. The patient is unable to provide any history and the history is obtained by speaking to the patient's at the bedside. PAST MEDICAL HISTORY History of hypertension, epilepsy, UTI, pneumonia, intracerebral hemorrhage, major depressive disorder and a stroke in 2013. PAST SURGICAL HISTORY Kidney stones. HOME MEDICATIONS Patient is on Ativan, Catapres, Cymbalta, finasteride, Neurontin, Lortab, DuoNeb, Keppra, Lipitor, meclizine, Lopressor, Imuran, ondansetron, Reglan, aspirin, acetaminophen and Macrobid. SOCIAL HISTORY No history of smoking cigarettes, drinking alcohol or any illicit drug abuse. FAMILY HISTORY Reviewed and none. REVIEW OF SYSTEMS Unable to obtain as the patient is more lethargic. PHYSICAL EXAMINATION GENERAL: The patient is lying on the bed not in acute distress. Unit #: [id number] #: [id number] Patient: ELZY,ROSCOE VITAL SIGNS: Temperature 97.4, pulse 93, respiratory 17, blood pressure 115/73, satting 99% at room air. HEENT: Head atraumatic, normocephalic. Pupils equal, round, reactive to light and accommodation. Dry mucous membrane. NECK: Supple. LUNGS: Positive for rhonchi at the left base. HEART: Regular rate and rhythm. ABDOMEN: Soft, positive bowel sounds. EXTREMITIES: No cyanosis. No clubbing. NEUROLOGIC: Patient is lethargic and unable to provide any history. DIAGNOSTIC STUDIES LABORATORY DATA: UA showed 3+ leukocyte esterase, 2+ protein, 3+ blood, 50-100 rbc's, enumerable urine WBC, 4+ urine bacteria. Lactic acid is 1.7, WBC 24.1, hemoglobin 10.1, hematocrit 31.6, platelet is 450 and neutrophils 81%, bandemia of 12%, INR 1.1 and troponin less than 0.05. Sodium 141, potassium 4, chloride 104, bicarb 28, glucose 111, BUN 27, creatinine 1.4, AST 17, ALT 12, albumin 2.7. IMAGING STUDIES: Chest x-ray shows atelectasis versus infiltrate at the left base. CARDIOLOGY STUDIES: EKG shows normal sinus rhythm. ASSESSMENT AND PLAN 1. Sepsis. 2. UTI. 3. Atelectasis/pneumonia of the left base, plan to admit the patient to the inpatient with telemetry and sepsis protocol. Continue with IV antibiotics with Maxipime and Zithromax and follow the labs and hold the narcotics and the psychiatric medications and repeat the labs again in the morning and check the sputum cultures and further recommendations will follow. Dictated by Bing Zambrano TD: 07/06/2017 08:25 JOB #: [id number] HISTORY AND PHYSICAL Page 1 of 1 X FREDI KOCH MD X HISTORY AND PHYSICAL
--- NOTE | ~2017-07-05 | CR72 ---
[facility] A Service of [facility] RADIOLOGY TEXT RESULTS PATIENT: BYRON VELASQUEZ LOCATION: [facility] [id number] : [birth year] UNIT #: [id number] AGE: [address]: Serjio Diaz MD SEX: M ORDER DR: [id number] [facility] [address] [place], [place] [address] [id number] I MR#: [id number] Acc #: [id number] NAME: BYRON VELASQUEZ : 1950 SEX: M STUDY DATE/TIME: 07/05/2017 15:08 UNIT: [facility] ROOM: [facility] STUDY DESCRIPTION: CR Chest Single View Portable Attending Physician: Carolyn Koch M.D. Ordering Physician: Gume Melendez M.D. Primary Care Physician: Gilmar Smith M.D. MEDICAL IMAGING REPORT This report is preliminary unless electronic signature is present EXAM Portable chest, 07/05. INDICATIONS Shortness of air for 2 days. FINDINGS AP portable chest is compared with 05/15/2017. Lung volumes are low. There is some mild infiltrate or atelectasis at the left base. Lungs otherwise are clear and there is no pneumothorax. IMPRESSION Low-volume inspiration with infiltrate or atelectasis at the left base. Dictated by... Frantz Mendoza Jr., M.D. THIS IS AN ELECTRONICALLY VERIFIED REPORT Frantz Mendoza Jr., M.D. at 07/07/2017 2:28 PM MEJIA/abilio TD: 07/05/2017 23:14 JOB #: [id number] MEDICAL IMAGING REPORT Page 1 of 1 COPY
[2017-07-05 15:36] LABS: BASOPHIL# 0.1 X10e3 (0-0.3); BASOPHIL% 0.4 % (0-2.5); EOSINOPHIL# 0.2 X10e3 (0-0.7); EOSINOPHIL% 0.7 % (0.0-7.0); HEMATOCRIT 31.6 % (38.0-50.0); HEMOGLOBIN 10.1 gm/dL (13.0-16.0); LYMPHOCYTE# 1.5 X10e3 (1.0-3.5); LYMPHOCYTE% 6.2 % (17.0-45.0); MEAN CELL VOLUME 83.7 FL (83-96); MEAN CORPUSCULAR HEMOGLOBIN 26.6 PG (28-34); MEAN CORPUSCULAR HGB CONC 31.8 g/dL (30-36); MEAN PLATELET VOLUME 7.7 FL (6.5-11.5); MONOCYTE# 1.2 X10e3 (0-1.0); MONOCYTE% 4.9 % (3.0-12.0); NEUTROPHIL# 21.2 X10e3 (1.5-7.1); NEUTROPHIL% 87.8 % (40-75); PLATELET COUNT 450 X10e3 (140-420); RED BLOOD COUNT 3.77 X10e (3.90-5.60); RED CELL DISTRIBUTION WIDTH 14.9 % (11.0-15.5); WHITE BLOOD COUNT 24.1 X10e3 (4.0-10.5)
[2017-07-05 15:37] LABS: DIFF IND YES
[2017-07-05 15:43] LABS: POC - CKMB 3.1 ng/mL (0.0-7.9); POC - TROPONIN <0.05 ng/mL (<=0.05)
[2017-07-05 15:46] LABS: INR 1.1; PARTIAL THROMBOPLASTIN TIME 31.5 SECONDS (23.5-31.3)
[2017-07-05 15:57] LABS: ANISOCYTOSIS SL; HYPOCHROMIA SL; PLATELET ESTIMATE NORMAL (NORMAL)
[2017-07-05 16:03] LABS: URINE SOURCE CLEAN CATCH
[2017-07-05] MEDS ORDERED: ATIVAN0.5 MG PO (16:06)
[2017-07-05] MEDS ORDERED: NEXIUM PO (16:07)
[2017-07-05] MEDS ORDERED: FINASTERIDE5 M1 PO (16:07)
[2017-07-05] MEDS ORDERED: NEURONTIN100 MG PO (16:07)
[2017-07-05] MEDS ORDERED: DULOXETINE HCL60 MG PO (16:07)
[2017-07-05] MEDS ORDERED: CLONIDINE PO (16:07)
[2017-07-05] MEDS ORDERED: LIPITOR40 MG PO (16:08)
[2017-07-05] MEDS ORDERED: IPRAT-ALBUT 0.5-3 ML NEB (16:08)
[2017-07-05] MEDS ORDERED: LORTAB 5-325 M1 EACH PO (16:08)
[2017-07-05] MEDS ORDERED: KEPPRA500 MG PO (16:08)
[2017-07-05] MEDS ORDERED: ANTIVERT PO (16:09)
[2017-07-05] MEDS ORDERED: REMERON PO (16:09)
[2017-07-05] MEDS ORDERED: LOPRESSOR PO (16:09)
[2017-07-05] MEDS ORDERED: REGLAN PO (16:10)
[2017-07-05] MEDS ORDERED: ZUPLENZ4 MG PO (16:10)
[2017-07-05] MEDS ORDERED: MACROBID100 M1 PO (16:10)
[2017-07-05] MEDS ORDERED: ACETAMINOPHEN PO (16:10)
[2017-07-05] MEDS ORDERED: ASPIRIN81 M2 PO (16:10)
[2017-07-05 16:11] LABS: URINE APPEARANCE TURBID; URINE BILIRUBIN NEG (NEG); URINE BLOOD 3+ (NEG); URINE COLOR YELLOW; URINE GLUCOSE NEG (NEG); URINE KETONE TRACE (NEG); URINE LEUKOCYTE ESTERASE 3+ (NEG); URINE NITRATE NEG (NEG); URINE PH 5.5 (5-8); URINE PROTEIN 2+ (NEG); URINE UROBILINOGEN 0.2 MG/DL (NEG)
[2017-07-05 16:14] LABS: CULTURE INDICATED? YES; URBCS1 AUWI 50-100 /[HPF] (0-2); URINE BACTERIA AUWI 4+ (NEGATIVE); URINE SQUAMOUS EPITHELIAL CELL FEW /[HPF]; UWBCS1 AUWI INNUM (0-5)
[2017-07-05 16:19] LABS: ALBUMIN SERUM 2.7 g/dL (3.5-5.0); BILIRUBIN, DIRECT 0.2 mg/dL (0.0-0.2); BILIRUBIN,INDIRECT 0.6 mg/dL (0.0-0.9); BILIRUBIN,TOTAL 0.8 mg/dL (0.2-2.0); BUN/CREATININE RATIO 19.28; CALCIUM SERUM 9.1 mg/dL (8.4-10.2); CREATININE SERUM 1.4 mg/dL (0.6-1.4); GLOM FILT RATE Estimated 51.6 mL/min (>60); PROTEIN TOTAL SERUM 6.9 g/dL (6.0-8.3)
[2017-07-06 05:36] LABS: BASOPHIL# 0.1 X10e3 (0-0.3); BASOPHIL% 0.3 % (0-2.5); EOSINOPHIL# 0.4 X10e3 (0-0.7); EOSINOPHIL% 2.1 % (0.0-7.0); HEMATOCRIT 28.1 % (38.0-50.0); HEMOGLOBIN 9.1 gm/dL (13.0-16.0); LYMPHOCYTE# 1.1 X10e3 (1.0-3.5); LYMPHOCYTE% 6.5 % (17.0-45.0); MEAN CELL VOLUME 82.6 FL (83-96); MEAN CORPUSCULAR HEMOGLOBIN 26.7 PG (28-34); MEAN CORPUSCULAR HGB CONC 32.3 g/dL (30-36); MEAN PLATELET VOLUME 7.2 FL (6.5-11.5); NEUTROPHIL# 14.6 X10e3 (1.5-7.1); NEUTROPHIL% 85.1 % (40-75); PLATELET COUNT 353 X10e3 (140-420); RED CELL DISTRIBUTION WIDTH 14.7 % (11.0-15.5); WHITE BLOOD COUNT 17.2 X10e3 (4.0-10.5)
[2017-07-06 05:37] LABS: DIFF IND NO
[2017-07-06 06:24] LABS: BUN/CREATININE RATIO 20.9; CALCIUM SERUM 8.6 mg/dL (8.4-10.2); CREATININE SERUM 1.1 mg/dL (0.6-1.4); GLOM FILT RATE Estimated 69.1 mL/min (>60); POTASSIUM 3.6 mmol/L (3.5-5.1)
[2017-07-07 09:52] LABS: HEMATOCRIT 27.3 % (38.0-50.0); HEMOGLOBIN 9.1 gm/dL (13.0-16.0); MEAN CELL VOLUME 82.3 FL (83-96); MEAN CORPUSCULAR HEMOGLOBIN 27.3 PG (28-34); MEAN CORPUSCULAR HGB CONC 33.2 g/dL (30-36); MEAN PLATELET VOLUME 7.6 FL (6.5-11.5); RED BLOOD COUNT 3.32 X10e (3.90-5.60); RED CELL DISTRIBUTION WIDTH 14.6 % (11.0-15.5); WHITE BLOOD COUNT 12.5 X10e3 (4.0-10.5)
[2017-07-07 10:40] LABS: CALCIUM SERUM 8.7 mg/dL (8.4-10.2); POTASSIUM 3.6 mmol/L (3.5-5.1)
[2017-07-07 15:54] LABS: URINE APPEARANCE TURBID; URINE BILIRUBIN NEG (NEG); URINE BLOOD 2+ (NEG); URINE COLOR YELLOW; URINE GLUCOSE NEG (NEG); URINE KETONE NEG (NEG); URINE LEUKOCYTE ESTERASE 3+ (NEG); URINE NITRATE NEG (NEG); URINE PROTEIN 2+ (NEG); URINE SPECIFIC GRAVITY 1.016 (1.003-1.035); URINE UROBILINOGEN 0.2 MG/DL (NEG)
[2017-07-07 15:58] LABS: URINE BACTERIA AUWI 1+ (NEGATIVE); URINE SQUAMOUS EPITHELIAL CELL NONE SEEN /[HPF]; UWBCS1 AUWI INNUM (0-5)
[2017-07-08 06:48] LABS: HEMATOCRIT 27.3 % (38.0-50.0); HEMOGLOBIN 9.1 gm/dL (13.0-16.0); MEAN CELL VOLUME 82.1 FL (83-96); MEAN CORPUSCULAR HEMOGLOBIN 27.3 PG (28-34); MEAN CORPUSCULAR HGB CONC 33.2 g/dL (30-36); MEAN PLATELET VOLUME 7.4 FL (6.5-11.5); RED BLOOD COUNT 3.32 X10e (3.90-5.60); RED CELL DISTRIBUTION WIDTH 14.8 % (11.0-15.5); WHITE BLOOD COUNT 9.8 X10e3 (4.0-10.5)
[2017-07-09 08:23] LABS: HEMOGLOBIN 8.6 gm/dL (13.0-16.0); MEAN CELL VOLUME 81.9 FL (83-96); MEAN PLATELET VOLUME 7.3 FL (6.5-11.5); RED BLOOD COUNT 3.18 X10e (3.90-5.60); RED CELL DISTRIBUTION WIDTH 14.8 % (11.0-15.5); WHITE BLOOD COUNT 9.6 X10e3 (4.0-10.5)
[2017-07-09 08:59] LABS: CALCIUM SERUM 8.3 mg/dL (8.4-10.2); POTASSIUM 3.5 mmol/L (3.5-5.1)
[2017-07-10 07:47] LABS: HEMATOCRIT 29.5 % (38.0-50.0); HEMOGLOBIN 9.6 gm/dL (13.0-16.0); MEAN CELL VOLUME 83.2 FL (83-96); MEAN CORPUSCULAR HEMOGLOBIN 27.2 PG (28-34); MEAN CORPUSCULAR HGB CONC 32.7 g/dL (30-36); MEAN PLATELET VOLUME 7.7 FL (6.5-11.5); RED BLOOD COUNT 3.55 X10e (3.90-5.60); RED CELL DISTRIBUTION WIDTH 14.5 % (11.0-15.5); WHITE BLOOD COUNT 10.3 X10e3 (4.0-10.5)
== END 2017-07-10 20:45 | DRG 871 ==
LOC: CED 14:28 → CEDOF 17:33 → CED 17:33 → CEDOF 19:47 → C5C 19:47
PROVIDERS: Emergency Medicine; Internal Medicine; Internal Medicine Endocrinology, Diabetes & Metabolism
PROC: 05H633Z Insertion of Infusion Device into Left Subclavian Vein, Percutaneous Approach (ICD-10-PCS; principal; 2017-07-10)
DX: A41.9 Sepsis, unspecified organism (principal); G92 Toxic encephalopathy; N39.0 Urinary tract infection, site not specified; J98.11 Atelectasis; M62.3 Immobility syndrome (paraplegic); I69.920 Aphasia following unspecified cerebrovascular disease
CPT/HCPCS: 36415; 51701; 71010; 80048; 80076; 80202; 81003; 82308; 82553; 83605; 84484; 85025; 85027; 85610; 85730; 87040; 87086; 92610; 93005; 94760; 96365; 99285; G8996-GN; G8997-GN; G8998-GN; J0456; J0696; J1953; J2543; J3260; J3370